=== PATIENT | male | born 1945 | race Caucasian/White ===

== ENCOUNTER 2021-05-27 20:05 | Emergency (ER) | payer OTHER ==
[~2021-05-27] VITALS: Ht 170.2 cm; Wt 96.2 kg
--- NOTE | 2021-05-27 20:05 | NUR ---
PT [employer] [place], PREBOOK. TAKEN TO CHAIR
[2021-05-27 20:18] VITALS: BP 142/80
[2021-05-27 21:16] LABS: ALBUMIN 4.2 g/dL (3.4-5.0); ANION GAP 13.7 (8-16); ASPARTATE AMINOTRANSFERASE 21 U/L (15-37); CARBON DIOXIDE 27.3 mmol/L (21-32); CHLORIDE 102 mmol/L (98-107); CREATININE 0.8 mg/dL (0.6-1.3); GLUCOSE 391 mg/dL (74-106); SODIUM SERUM 139 mmol/L (136-145); TOTAL BILIRUBIN 0.3 mg/dL (0.0-1.0); UREA NITROGEN, BLOOD 11 mg/dL (7-18)
[2021-05-27 21:45] VITALS: BP 142/80
--- NOTE | 2021-05-27 21:45 | NUR ---
PATIENT BIB [place] [employer]. PATIENT EXAMINED BY DR. GONZALEZ. PATIENT MEDICALLY CLEARED AND RELEASED IN CUSTODY IN STABLE CONDITION. ORIGINAL PRE-BOOK FORM GIVEN TO OFFICER BENY # [id number].
== END 2021-05-27 21:45 ==
LOC: MED 20:05
DX: Z02.89 Encounter for other administrative examinations (principal); E11.65 Type 2 diabetes mellitus with hyperglycemia; I10 Essential (primary) hypertension
CPT/HCPCS: 36415; 80053; 99283